=== PATIENT | female | born 1980 | race Caucasian/White ===

== ENCOUNTER 2019-09-01 16:00 | Outpatient (RCR) | payer OTHER, SELFPAY ==
[2019-06-05 16:35] VITALS: BP_SYST 90
--- NOTE | 2019-06-05 17:32 | PTOPEVAL ---
PHYSICAL THERAPY PLAN OF CARE Thank you for referring this patient to [facility] Monse is to be seen in PT for 1x/week for 5-8 weeks for treatment of adhesive capsulitis. She was provided with HEP and was introduced to pulleys. Her HEP will be updated accordingly. Please review, sign, date and return this plan of care SHAYNE. I agree with and certify that the following plan of care is medically necessary. Referring Physician Date Attending Provider: GABRIELA Morris Evaluation Outpatient Past Medical History Endocrine History Hx Diabetes Yes: insulin pump Evaluation Information Problem Diagnosis left shoulder pain, adhesive capsulitis Onset 1 year Subjective Information Monse is here today with c/o Query Text:As Reported By Patient/ left shoulder pain with Family significant limitation in ROM. She cannot do her own hair, pulling up her pants is a challenge, tucking in her shirt is a challenge. She has to modify the way she does her job. She did have a cortisone injection in April . A week ago she fell and used her left arm to break her fall and since then there is a different feeling in the top of the left shoulder. 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 Hand Dominance Right Pain Assessment Self Report Pain Assessment Left Shoulder(s) Reported Pain Level 4 Pain Frequency Chronic,Intermittent Current Pain Intensity 4 Lowest Pain Intensity 0 Greatest Pain Intensity 9 Upper Extremity Range of Motion Scapular/ Shoulder Range of Motion Left Shoulder Flexion - Active 107 Shoulder Flexion - Passive 125 Shoulder Abduction - Active 77 Shoulder Abduction - Passive 90 Shoulder Medial Rotation - Active L4 Query Text:Reach Behind the Back Scapular/Shoulder Range of Motion horizontal abduction: 70deg Comments Scapular/Shoulder Strength Right Shoulder Flexion Strength 4 Good Shoulder Abduction Strength 4 Good Shoulder Medial Rotation Strength 4+ Good + Shoulder Lateral Rotation Strength 4 Good Left Shoulder Flexion Strength 3- Fair - Shoulder Abduction Strength 3- Fair - Shoulder Medial Rotation Strength 3+ Fair + Shoulder Lateral Rotation Strength 3+ Fair + Posture Standing Position Posture Evaluation View Posterior Thoracic Spine Posture Increased Kyphosis Lumbar Spine Posture
--- NOTE | 2019-07-23 08:21 | PCPTNOTE ---
Addendum entered by Steph Graham, PT 07/23/19 08:27: disregard note. patient was 27 minutes late to appointment. Original Note: Patient did not show up for scheduled appointment this date.
[2019-07-23 08:31] VITALS: BP_SYST 90
--- NOTE | 2019-07-23 09:01 | PTOPEVAL ---
PHYSICAL THERAPY PLAN OF CARE UPDAT EAND PROGRESS REPORT Thank you for referring this patient to [facility]. Monse will continue physical therapy 1x/week for 4 weeks with re-evaluation for determination of further needs. Please review, sign, date and return this plan of care SHAYNE. I agree with and certify that the following plan of care is medically necessary. Referring Physician Date Attending Provider: GABRIELA Morris Re-evaluation Outpatient Past Medical History Endocrine History Hx Diabetes Yes: insulin pump Evaluation Information Diagnosis left shoulder pain, adhesive capsulitis Onset 1 year Subjective Information Monse has not been here in Query Text:As Reported By Patient/ 48 days. She states that her Family insurance did not approve visits right away and she had to wait. She has more pain now then she did at the last visit. She is not able to lie on the left side, but she no longer is able. Pain Scale Used Numeric (1 - 10) Self Report Pain Assessment Left Shoulder(s) Reported Pain Level 6 Pain Frequency Chronic,Intermittent Pain Score Pain Score 6: Self Report Scapular/ Shoulder Range of Motion Left Shoulder Flexion - Active 107 Shoulder Flexion - Passive 125 Shoulder Abduction - Active 77 Shoulder Abduction - Passive 90 Shoulder Medial Rotation - Active L4 Query Text:Reach Behind the Back Scapular/Shoulder Range of Motion horizontal abduction: 60deg Comments Scapular/Shoulder Strength Right Shoulder Flexion Strength 4 Good Shoulder Abduction Strength 4 Good Shoulder Medial Rotation Strength 4+ Good + Shoulder Lateral Rotation Strength 4 Good Left Shoulder Flexion Strength 3- Fair - Shoulder Abduction Strength 3- Fair - Shoulder Medial Rotation Strength 3+ Fair + Shoulder Lateral Rotation Strength 3+ Fair + Muscle Length Testing Scalenes Posterior Muscle Length (L) Severe Tightness Query Text: Scalenes Anterior Muscle Length (L) Severe Tightness Query Text: Scalenes Middle Muscle Length (L) Severe Tightness Query Text: Upper Trapezius Muscle Length (R) Moderate Tightness Levaetor Scapulae Muscle Length (L) Severe Tightness Pectoralis Major Muscle Length (L) Severe Tightness Posture Posture Standing Position Posture Evaluation View Posterior Thoracic Spine Posture Increased Kyphosis Lumbar Spine Posture Neutral Shoulder Posture (L) Rounded,(R) Rounded,(L)
--- NOTE | 2019-08-05 16:09 | PCPTNOTE ---
Patient did not show up for scheduled appointment this date.
--- NOTE | 2019-08-12 16:24 | PCPTNOTE ---
Patient called & cancelled scheduled appointment this date due to son being in the hospital.
--- NOTE | 2019-08-14 15:46 | PCPTNOTE ---
Patient called & cancelled scheduled appointment this date due to son being in the hospital.
[2019-08-19 16:10] VITALS: BP_SYST 85
--- NOTE | 2019-08-19 17:01 | PTOPEVAL ---
Thank you for referring this patient to [facility]. Please review, sign, date and return this plan of care [facility]. I agree with and certify that the following plan of care is medically necessary. Referring Physician Date Admitting Provider: Attending Provider: GABRIELA Morris Referring Provider: *PT Outpatient Evaluation Start: 06/05/19 16:32 Freq: Status: Active Protocol: Document 08/19/19 16:10 TOAN (Rec: 08/19/19 16:55 TOAN [email or web address]) Therapy Assessment Status Assessment Status Assessment Status Re-evaluation Outpatient Past Medical History Endocrine History Hx Diabetes Yes: insulin pump Evaluation Information Problem Diagnosis left shoulder pain, adhesive capsulitis Onset 1 year Subjective Information Monse has not been here in Query Text:As Reported By Patient/ 48 days. She states that her Family insurance did not approve visits right away and she had to wait. She has more pain now then she did at the last visit. She is now able to lie on the left side. Pain Assessment Timing of Pain Assessment Timing of Pain Assessment Pre-Treatment Pain Scale Pain Scale Used Numeric (1 - 10) Self Report Pain Assessment Left Shoulder(s) Reported Pain Level 5 Pain Frequency Chronic,Intermittent Pain Score Pain Score 5: Self Report Additional Pain Score Comments today and yesterday have not been good days for pain, but otherwise it does not hurt constantly Upper Extremity Range of Motion Scapular/ Shoulder Range of Motion Left Shoulder Flexion - Active 110 Shoulder Flexion - Passive 115 Shoulder Abduction - Active 85 Shoulder Abduction - Passive 85 Shoulder Medial Rotation - Active L4 Query Text:Reach Behind the Back Scapular/Shoulder Range of Motion horizontal abduction: 70deg Comments Upper Extremity Muscle Strength Testing Scapular/Shoulder Right Shoulder Flexion Strength 4 Good Shoulder Abduction Strength 4 Good Shoulder Medial Rotation Strength 4+ Good + Shoulder Lateral Rotation Strength 4 Good Left Shoulder Flexion Strength 3- Fair - Shoulder Abduction Strength 3- Fair - Shoulder Medial Rotation Strength 3+ Fair + Shoulder Lateral Rotation Strength 3+ Fair + Muscle Length Testing Muscle Length Testing Scalenes Anterior Muscle Length (L) Severe Tightness Query Text: Latissmus Dorsi Muscle Length (L) Moderate Tightness
--- NOTE | 2019-08-28 17:46 | PCPTNOTE ---
Patient called & cancelled scheduled appointment this date due to car trouble
--- NOTE | 2019-09-15 17:45 | PCPTNOTE ---
This treatment is being continued on visit number [id number]. Please see documentation on both accounts to view progress. Completed interventions, outcomes, and problems have been marked as Inactive to facilitate the copying of the Care plan routine for recurring accounts.
== END 2019-09-01 23:59 | disposition home or self-care (01) ==
LOC: ANHPT 16:00
PROVIDERS: PCP Physician Assistant Surgical; Visit Provider Physician Assistant Surgical
DX: M75.01 Adhesive capsulitis of right shoulder (principal)
CPT/HCPCS: 97110; 97140; 97161

== ENCOUNTER 2019-10-20 15:00 | Outpatient (RCR) | payer OTHER, SELFPAY ==
[2019-09-04 00:07] VITALS: BP_SYST 85
--- NOTE | 2019-09-09 17:49 | PCPTNOTE ---
Patient called & cancelled scheduled appointment this date no transportation
--- NOTE | 2019-09-15 17:43 | PTOPEVAL ---
PHYSICAL THERAPY PLAN OF CARE UPDATE AND PROGRESS REPORT Thank you for referring this patient to [facility]. Monse will be seen 1x/week for 4 weeks with re-evaluation to determine further PT needs. Please review, sign, date and return this plan of care SHAYNE. I agree with and certify that the following plan of care is medically necessary. Referring Physician Date Attending Provider: GABRIELA Morris Re-evaluation Outpatient Past Medical History Endocrine History Hx Diabetes Yes: insulin pump Evaluation Information Problem Diagnosis left shoulder pain, adhesive capsulitis Onset 1 year Subjective Information Monse is here today for re- Query Text:As Reported By Patient/ evaluation. Out of 15 Family scheduled appointments she has attended 7 including today. She reports today that pain is not daily. Will hurt when she uses it too much and when she lies on it too long. Self Report Pain Assessment Left Shoulder(s) Reported Pain Level 5 Pain Score Pain Score 5: Self Report Additional Pain Score Comments sore today because of work Scapular/ Shoulder Range of Motion Right Shoulder Flexion - Active 122 Shoulder Abduction - Active 100 Shoulder Medial Rotation - Active L2 Query Text:Reach Behind the Back Scapular/Shoulder Range of Motion horizontal abduction: 75deg Comments Scapular/Shoulder Right Shoulder Flexion Strength 3- Fair - Shoulder Abduction Strength 3- Fair - Shoulder Medial Rotation Strength 3+ Fair + Shoulder Lateral Rotation Strength 3+ Fair + Palpation significant tightness to bilateral upper trapezius and scalenes, pectoralis major, subscapularis, and teres major Clinical Summary Monse is a 39 yo female participating in physical therapy for left adhesive capsulitis. She has attended 7 total visits and has cancelled or no showed 8 visits. She demonstrates mild progress toward meeting her goals. Monse does have on average 10more degrees in all ranges of motion compared to 4 weeks ago. Her strength demonstrates no change. She feels as though she will
--- NOTE | 2019-09-15 17:44 | PCPTNOTE ---
The treatment documented on this account is a continuation of the treatment documented on visit number [id number]. Please see documentation on both accounts to view progress. The Plan of Care has been transitioned and updated within the new V#. I have addressed and agree with the discipline specific Problems, Interventions, and Goals for the current certification period. Completed interventions, outcomes, and problems have been marked as Inactive to facilitate the copying of the Care plan routine for recurring accounts.
--- NOTE | 2019-10-07 08:38 | PCPTNOTE ---
Patient called & cancelled scheduled appointment this date due to COVID-19.
--- NOTE | 2019-10-20 15:49 | PTOPEVAL ---
PHYSICAL THERAPY DISCHARGE NOT E Thank you for referring Monse Kirkpatrick to [facility]. Please review, sign, date and return this plan of care SHAYNE. I agree with and certify that the following plan of care is medically necessary. Referring Physician Date Attending Provider: GABRIELA Morris Discharge Outpatient Past Medical History Endocrine History Hx Diabetes Yes: insulin pump Diagnosis left shoulder pain, adhesive capsulitis Onset 1 year Subjective Information reports that the warm weather Query Text:As Reported By Patient/ is helping to decrease pain Family symptoms Self Report Pain Assessment Left Shoulder Reported Pain Level 2 Upper Extremity Range of Motion Scapular/ Shoulder Range of Motion Right Shoulder Flexion - Active 122 Shoulder Abduction - Active 95 Shoulder Medial Rotation - Active L2 Query Text:Reach Behind the Back Shoulder Lateral Rotation - Active 10 Scapular/Shoulder Range of Motion horizontal abduction: 75deg - Comments no change after manual stretching: flexion: 125 abduction: 103 IR: L2 ER: in neutral: 14deg from 1 month ago: flexion: 125 abduction: 100 IR: L2 ER: not measured Upper Extremity Muscle Strength Testing Scapular/Shoulder Right Shoulder Flexion Strength 3- Fair - Shoulder Abduction Strength 3- Fair - Shoulder Medial Rotation Strength 3+ Fair + Shoulder Lateral Rotation Strength 3+ Fair + Muscle Length Testing Pectoralis Major Muscle Length (L) Severe Tightness Pectoralis Major- Clavicular Fibers (L) Severe Tightness Muscle Length Pectoralis Minor Muscle Length (L) Severe Tightness Muscle Length Testing Comments subscapularis, teres major and minor, upper trapezius, and anterior scalanes all severely shortened and tender to palpation; trigger points noted throughout PT Clinical Summary Monse is here for re- evaluation for left adhesive capsulitis. She has been participating in physical therapy for this condition since May 2019. Sommer presents today with little to no changes in ROM since last
== END 2019-11-24 12:16 | disposition home or self-care (01) ==
LOC: ANHPT 15:00
PROVIDERS: PCP Physician Assistant Surgical; Visit Provider Physician Assistant Surgical
DX: M75.01 Adhesive capsulitis of right shoulder (principal)
CPT/HCPCS: 97110; 97140

== ENCOUNTER 2020-02-17 13:09 | Outpatient (CLI) | payer OTHER, SELFPAY ==
--- NOTE | ~2020-02-17 | XR_ITS ---
EXAMINATION: XR lg joint inject/asp w image DATE: 02/17/2020 13:58 INDICATION: Right frozen shoulder TECHNIQUE: A time-out was performed to verify the patient's name, date of , and procedure to b e performed. The procedure including the risks, benefits, and alternatives was discussed with the pat ient. Risks discussed included bleeding and infection. The patient understood the risks and agreed to proceed. The skin overlying the rotator cuff interval of the right glenohumeral joint was prepped a nd draped in usual sterile fashion. Anesthetic was administered with 1% lidocaine subcutaneously. A 22 G needle was advanced under fluoroscopic guidance into the joint. Injection of 0.6 mL of Omnipaq ue 240 confirmed intra-articular position of the needle. Subsequently, injectate consisting of 5 mL of a 4:1 mixture of 1% lidocaine: 80 mg/mL Depo-Medrol for a total dose of 80 mg Depo-Medrol was inst illed. Washout of contrast was seen confirming intra-articular administration. The needle was removed and the entry site was cleaned and dressed. There were no immediate complications. Fluoroscopy expo sure time was 0.1 minutes. The total number of images was 2. FINDINGS: Real-time fluoroscopy demonstrates the needle in the right glenohumeral joint. Patient's pa in prior to procedure:8/10. Patient's pain following the procedure: 0/10. IMPRESSION: 1. Right glenohumeral injection of local anesthetic and steroid with decrease in the patient's presen ting pain. Reviewed, dictated and finalized at location A. IMPRESSION: 1. Right glenohumeral injection of local anesthetic and steroid with decrease i n the patient's presenting pain.
== END 2020-02-17 13:10 | disposition home or self-care (01) ==
LOC: ANHIMG 13:18
PROVIDERS: PCP Family Medicine; Visit Provider Orthopaedic Surgery
DX: M75.01 Adhesive capsulitis of right shoulder (principal)
CPT/HCPCS: 20610; 77002; Q9966

== ENCOUNTER 2021-05-22 11:29 | Emergency (ER) | payer OTHER, SELFPAY ==
[2021-05-22 11:32] VITALS: BP 135/81; PULSE 93; RESP 16; TEMP 36.4; O2SAT 100
--- NOTE | 2021-05-22 14:34 | PC.NURSE ---
Attempted to call pt from waiting room x2. Security states that they saw her leave approx 30 minutes ago.
== END 2021-05-22 14:34 | disposition left against medical advice (07) ==
LOC: ANHED 14:47
DX: M25.552 Pain in left hip (principal)
CPT/HCPCS: 99199